=== PATIENT | female | born 1970 | race Caucasian/White ===

== ENCOUNTER → 2018-12-19 15:04 | Outpatient (CLI) | payer OTHER, SELFPAY ==
[2018-12-19 16:36] LABS: Calcium 9.4 mg/dL (8.5-10.1); Free Thyroxine Index 3.2 ug/dL (5.93-13.13); T4 (Thyroxine) 8.7 ug/dl (4.7-13.3); Thyroid Stimulating Hormone 1.82 uIU/ml (0.358-3.740); Triiodothryronine (T3) Uptake 37 % (31-39)
[2018-12-22 08:17] LABS: Thyroid Peroxidase Antibodies 10 IU/mL (0-34)
[2018-12-22 08:22] LABS: Thyroid Stimulating Immunoglob <0.10 IU/L (0.00-0.55)
[2018-12-22 14:04] LABS: Calcitonin <2.0 pg/mL (0.0-5.0)
== END ==
PROVIDERS: Visit Provider Otolaryngology
DX: E01.0 Iodine-deficiency related diffuse (endemic) goiter (principal); E04.1 Nontoxic single thyroid nodule
CPT/HCPCS: 36415; 82308; 82310; 84436; 84443; 84445; 84479; 86376

== ENCOUNTER → 2019-01-03 09:43 | Outpatient (CLI) | payer OTHER, SELFPAY ==
--- NOTE | 2019-01-03 09:51 | US_ITS ---
US FNA Thyroid HISTORY: Dominant right thyroid nodule ITS.REASON: RT THYROID NODULE ORDERING PHYSICIAN: Alireza Shane MD PATIENT AGE: 48 years COMPARISON: None Prebiopsy ultrasound performed showing a dominant slightly hyperechoic nodule along the lower pole on the right with increased blood flow. This measures 18 x 10 mm. TECHNIQUE: Following obtaining informed consent, using aseptic technique and local anesthesia with buffered lidocaine, fine-needle aspiration was performed of the nodule of interest using sonographic guidance. 2 passes were made into the nodule with a 21-gauge needle. Specimen was given to cytology. The patient tolerated the procedure well without evidence of immediate complications and left the ultrasound suite in stable condition. CYTOLOGY:Atypical IMPRESSION: Uneventful ultrasound-guided fine needle aspiration of the dominant lower pole nodule on the right showing atypical follicular lesion of undetermined significance. Please see pathologist report
--- NOTE | 2019-01-03 10:41 | US_ITS ---
US thyroid HISTORY: ITS.REASON: RT THYROID NODULE ORDERING PHYSICIAN: Alireza Shane MD PATIENT AGE: 48 years Comparison: None FINDINGS: The right lobe measures 4.5 x 1.6 x 2.3 cm. There is a 3 mm slightly hyperechoic nodule in the upper pole, 5 mm slightly hypoechoic nodule in the midpole. A dominant 18 x 10 mm slightly hyperechoic nodule present in the lower pole with increased vascularity. This was the nodule that was targeted for biopsy. The left lobe is 4.5 x 1.6 x 1.9 cm with heterogeneous echogenicity but no discrete nodule. IMPRESSION: Dominant slightly hyperechoic nodule in the lower pole on the right and 18 x 10 mm indeterminate. Other smaller nodules noted on the right Enlarged thyroid gland
== END ==
PROVIDERS: PCP Emergency Medicine; Visit Provider Otolaryngology
DX: E04.1 Nontoxic single thyroid nodule (principal)
CPT/HCPCS: 76536; 76942

== ENCOUNTER → 2019-03-06 13:34 | Outpatient (CLI) | payer OTHER, SELFPAY ==
[2019-03-06 15:50] LABS: Free T4 (Free Thyroxine) 1.49 ng/dl (0.76-1.46); Thyroid Stimulating Hormone 0.63 uIU/ml (0.358-3.740)
== END ==
PROVIDERS: Visit Provider Otolaryngology
DX: C73 Malignant neoplasm of thyroid gland (principal); E04.1 Nontoxic single thyroid nodule
CPT/HCPCS: 36415; 84439; 84443

== ENCOUNTER → 2019-06-05 13:13 | Outpatient (CLI) | payer OTHER, SELFPAY ==
[2019-06-05 13:58] LABS: Free T4 (Free Thyroxine) 1.47 ng/dl (0.76-1.46); Thyroid Stimulating Hormone 0.29 uIU/ml (0.358-3.740)
== END ==
PROVIDERS: Visit Provider Otolaryngology
DX: C73 Malignant neoplasm of thyroid gland; E03.9 Hypothyroidism, unspecified
CPT/HCPCS: 36415; 84439; 84443

== ENCOUNTER → 2020-02-07 08:28 | Outpatient (CLI) | payer OTHER, SELFPAY ==
[2020-02-07 09:48] LABS: Thyroid Stimulating Hormone 0.29 uIU/mL (0.465-4.68)
== END ==
PROVIDERS: Visit Provider Otolaryngology
DX: E03.9 Hypothyroidism, unspecified (principal)
CPT/HCPCS: 36415; 84439; 84443

== ENCOUNTER → 2021-02-10 11:44 | Outpatient (CLI) | payer OTHER, SELFPAY ==
[2021-02-10 12:39] LABS: Thyroid Stimulating Hormone 0.11 uIU/mL (0.465-4.68)
[2021-02-10 13:18] LABS: Free T4 (Free Thyroxine) 1.83 ng/dl (0.78-2.19)
== END ==
PROVIDERS: Visit Provider Otolaryngology
DX: E03.9 Hypothyroidism, unspecified (principal)
CPT/HCPCS: 36415; 84439; 84443